=== PATIENT | female | born 1985 | race Caucasian/White ===

== ENCOUNTER 2022-06-17 10:47 | Emergency (ER) | payer OTHER ==
[~2022-06-17] VITALS: Ht 162.6 cm; Wt 80.7 kg
[2022-06-17 10:55] VITALS: BP 131/77
[2022-06-17] MEDS ORDERED: FAMOTIDINE 20 MG TAB PO ONE (11:05)
--- NOTE | 2022-06-17 11:10 | NUR ---
37F presents to ED with c/o allergic reaction since last night. Pt reports purchasing a strawberry drink from [facility] [employer] that could have caused reaction. Pt reports reaction presented initially with pruritis and hives on head and arms last night, this moring with upper lip swelling and numbness. Slight swelling noted to upper lip upon assessment. Pt reports taking Zyrtec at 2200 last night with temporary relief. Pt denies pain, denies SOB or trouble breathing.
[2022-06-17] MEDS ORDERED: DIPH25TA53 PO (12:47)
[2022-06-17] MEDS ORDERED: EPIN1KIT31 IM (12:47)
[2022-06-17 12:58] VITALS: BP 128/81
--- NOTE | 2022-06-17 12:59 | NUR ---
Patient discharged with v/s stable. Written and verbal after care instructions given and explained. Patient verbalized understanding. Ambulatory with steady gait. All questions addressed prior to discharge. Advised to follow up with PMD.
== END 2022-06-17 12:58 | disposition home or self-care (01) ==
LOC: MED 10:47
DX: L50.9 Urticaria, unspecified (principal); T78.1XXA Other adverse food reactions, not elsewhere classified, initial encounter; X58.XXXA Exposure to other specified factors, initial encounter
CPT/HCPCS: 99283; Q0163